=== PATIENT | female | born 1990 | race Two or more races ===

== ENCOUNTER → 2019-07-28 | Outpatient (CLI) | payer OTHER | END | disposition home or self-care (01) | LOC: PRENATAL 08:00 | DX: O35.3XX0 Maternal care for (suspected) damage to fetus from viral disease in mother, not applicable or unspecified (principal); O28.1 Abnormal biochemical finding on antenatal screening of mother; Z36.89 Encounter for other specified antenatal screening ==

== ENCOUNTER → 2019-10-28 | Outpatient (CLI) | payer OTHER ==
[~2019-10-28] MED LIST: CODE1TAB37 PO; DOCUSATE SODIU100 MG PO; NAPR500T14 PO; PRENATAL CAPLE1 EAC1 PO; VITAMIN C1000 MG PO
== END | disposition home or self-care (01) ==
LOC: PRENATAL 14:30
PROVIDERS: ATTEND Obstetrics & Gynecology Maternal & Fetal Medicine
DX: O26.843 Uterine size-date discrepancy, third trimester (principal); O36.8131 Decreased fetal movements, third trimester, fetus 1; O36.5931 Maternal care for other known or suspected poor fetal growth, third trimester, fetus 1; Z36.89 Encounter for other specified antenatal screening; Z3A.36 36 weeks gestation of pregnancy

== ENCOUNTER 2019-10-29 13:25 | Inpatient (IN) | payer OTHER ==
[~2019-10-29] VITALS: Ht 154.9 cm; Wt 2.3 kg
[2019-10-29] MEDS ORDERED: PRENATAL CAPLE1 EAC1 PO (13:56)
[2019-10-29] MEDS ORDERED: VITAMIN C1000 MG PO (13:58)
[2019-11-01] MEDS ORDERED: CODE1TAB37 PO (07:49)
[2019-11-01] MEDS ORDERED: NAPR500T14 PO (07:50)
[2019-11-01] MEDS ORDERED: DOCUSATE SODIU100 MG PO (07:50)
== END 2019-11-01 13:31 | disposition home or self-care (01) | DRG 786 ==
LOC: LDR 13:25 → OB/GYN 13:25
PROVIDERS: ADMIT Obstetrics & Gynecology; ATTEND Obstetrics & Gynecology
PROC: 4A1HXCZ Monitoring of Products of Conception, Cardiac Rate, External Approach (ICD-10-PCS; 2019-10-29)
PROC: 10D00Z1 Extraction of Products of Conception, Low, Open Approach (ICD-10-PCS; principal; 2019-10-29 20:15)
DX: O64.1XX0 Obstructed labor due to breech presentation, not applicable or unspecified (principal); O60.14X0 Preterm labor third trimester with preterm delivery third trimester, not applicable or unspecified; O41.03X0 Oligohydramnios, third trimester, not applicable or unspecified; Z3A.36 36 weeks gestation of pregnancy; Z37.0 Single live birth